=== PATIENT | male | born 1955 | race African-American/Black ===

== ENCOUNTER 2016-08-12 10:51 | Emergency (ER) | payer BC, OTHER, SELFPAY ==
[2016-08-12] MEDS ORDERED: Ibuprofen 800 MG TAB ONE (11:30)
== END 2016-08-12 11:42 | disposition home or self-care (01) ==
LOC: MADERS 10:51
DX: S39.012A Strain of muscle, fascia and tendon of lower back, initial encounter (principal); I10 Essential (primary) hypertension; F17.210 Nicotine dependence, cigarettes, uncomplicated; W00.0XXA Fall on same level due to ice and snow, initial encounter; Y92.511 Restaurant or cafe as the place of occurrence of the external cause
CPT/HCPCS: 99283

== ENCOUNTER 2018-11-22 14:36 | Emergency (ER) | payer MEDICARE ==
[2018-11-22] MEDS ORDERED: Sodium Chloride 0.9% 1,000 ML ONE ×3 (15:14→19:54)
[2018-11-22] MEDS ORDERED: Ondansetron PF 4 MG/2 ML Vial ONE (15:14)
[2018-11-22 16:07] LABS: Band 10 % (5-11); Hemoglobin 15.9 g/dL (14.0-18.0); Lymphocytes 32 % (21-51); MDiff Complete? YES; Mean Corpuscular HGB CONC 34.1 g/dL (32.0-36.0); Mean Corpuscular Hemoglobin 33.3 pg (27.0-31.0); Mean Corpuscular Volume 97.6 fL (78.0-98.0); Mean Platelet Volume 7.2 fL (7.4-10.4); Monocytes 8 % (0-10); Neutrophil 50 % (42-75); Platelet Count 311 thou/uL (130-400); Platelet Morphology Comment Appears Adequate; RBC Distribution Width 21.2 % (11.5-14.5); Red Blood Cell (RBC) Count 4.78 mill/uL (4.70-6.10); White Blood Cell (WBC) Count 4.7 thou/uL (4.8-10.8)
[2018-11-22 16:14] LABS: ALT (SGPT) 13 U/L (8-55); AST (SGOT) 28 U/L (5-34); Albumin 4.6 g/dL (3.4-4.8); Alkaline Phosphatase 110 U/L (40-110); Anion Gap 28 mmol/L (10-20); BUN (Urea Nitrogen) 75 mg/dL (8.4-25.7); Bilirubin, Total 0.8 mg/dL (0.2-1.2); Calc. Creatinine Clearance 0 mL/min (70-130); Carbon Dioxide 21 mmol/L (23-31); Chloride 92 mmol/L (98-107); Estimated GFR-MDRD 10; Globulin 4.6 g/dL (2.4-3.5); Glucose 112 mg/dL (80-115); Potassium 3.6 mmol/L (3.5-5.1); Protein, Total 9.2 g/dL (5.8-8.1); Sodium 137 mmol/L (136-145)
[2018-11-22 19:16] LABS: ALT (SGPT) 12 U/L (8-55); AST (SGOT) 23 U/L (5-34); Alkaline Phosphatase 95 U/L (40-110); Anion Gap 21 mmol/L (10-20); BUN (Urea Nitrogen) 74 mg/dL (8.4-25.7); Bilirubin, Total 0.6 mg/dL (0.2-1.2); Calc. Creatinine Clearance 0 mL/min (70-130); Calcium 8.7 mg/dL (7.8-10.44); Carbon Dioxide 20 mmol/L (23-31); Chloride 99 mmol/L (98-107); Estimated GFR-MDRD 12; Globulin 3.6 g/dL (2.4-3.5); Glucose 101 mg/dL (80-115); Potassium 3.4 mmol/L (3.5-5.1); Protein, Total 7.6 g/dL (5.8-8.1); Sodium 137 mmol/L (136-145)
[2018-11-22 20:37] LABS: Bilirubin Small (Negative); Blood, Urine Moderate (Negative); Clarity Clear (Clear); Glucose, Urine (Dipstick) Negative (Negative); Leukocyte Negative (Negative); Nitrite Negative (Negative); Protein, Urine (Dipstick) 100 mg/dL (Neg-Trace); Urobilinogen 0.2 mg/dL (Less than 2)
[2018-11-22 20:39] LABS: RBC/HPF 0-3 HPF (0-3); WBC/HPF 0-3 HPF (0-3)
[2018-11-22 20:40] LABS: Bacteria/HPF Rare-Few HPF (None Seen); Mucous/LPF Rare LPF (<2+)
== END 2018-11-22 20:14 | disposition short-term general hospital (02) ==
LOC: MADERS 14:36
DX: N17.9 Acute kidney failure, unspecified (principal); E86.0 Dehydration; E78.5 Hyperlipidemia, unspecified; E78.00 Pure hypercholesterolemia, unspecified; I10 Essential (primary) hypertension; F17.210 Nicotine dependence, cigarettes, uncomplicated; Z79.899 Other long term (current) drug therapy
CPT/HCPCS: 36415; 80053; 81003; 81015; 82550; 83880; 84443; 85025; 96361; 96374; J2405; J7050

== ENCOUNTER 2020-02-20 17:41 | Emergency (ER) | payer MEDICARE ==
[~2020-02-20 17:41] MED LIST: Iopamidol 370 76% 100 ML VIAL ONE; Sodium Chloride 0.9% 100 ML BAG ONE
[2020-02-20] MEDS ORDERED: Ondansetron ODT 4 MG TAB ONE (18:18)
[2020-02-20 18:36] LABS: Bilirubin Small (Negative); Blood, Urine Small (Negative); Clarity Hazy (Clear); Glucose, Urine (Dipstick) Negative (Negative); Ketone, Urine Trace mg/dL (Negative); Leukocyte Trace (Negative); Nitrite Negative (Negative); Protein, Urine (Dipstick) 100 mg/dL (Neg-Trace)
[2020-02-20 18:47] LABS: Bacteria/HPF 1+ HPF (None Seen); Mucous/LPF 2+ LPF (<2+); RBC/HPF 0-3 HPF (0-3); Squamous Epithelial 0-3 HPF (0-3)
[2020-02-20 19:10] LABS: ALT (SGPT) 42 U/L (8-55); AST (SGOT) 115 U/L (5-34); Albumin 4.6 g/dL (3.4-4.8); Alkaline Phosphatase 75 U/L (40-110); Anion Gap 20 mmol/L (10-20); BUN (Urea Nitrogen) 27 mg/dL (8.4-25.7); Bilirubin, Total 1.4 mg/dL (0.2-1.2); Calc. Creatinine Clearance 0 mL/min (70-130); Calcium 9.2 mg/dL (7.8-10.44); Carbon Dioxide 19 mmol/L (23-31); Chloride 108 mmol/L (98-107); Glucose 118 mg/dL (80-115); Lipase 28 U/L (8-78); Protein, Total 7.6 g/dL (5.8-8.1); Sodium 143 mmol/L (136-145)
[2020-02-20 19:17] LABS: #Eosinphils 0.1 thou/uL (0.0-0.7); #Lymphocytes 1.3 thou/uL (1.20-3.40); #Monocytes 0.2 thou/uL (0.11-0.59); #Neutrophils 2.3 thou/uL (1.40-6.50); %Basophils 0.8 % (0.0-1.0); %Eosinophils 1.7 % (0.0-10.0); %Lymphocytes 34.3 % (21.0-51.0); %Monocytes 3.9 % (0.0-10.0); %Neutrophils 59.3 % (42.0-75.0); Anisocytosis MODERATE=16-30 cells (100X) (0-5/hpf); Giant Platelets SLIGHT; Hypochromia MODERATE=16-30 cells (100X) (0-5/hpf); Large Platelets SLIGHT; MDiff Complete? YES; Macrocytosis MODERATE=16-30 cells (100X) (0-5/hpf); Mean Corpuscular HGB CONC 33.4 g/dL (32.0-36.0); Mean Corpuscular Hemoglobin 38.9 pg (27.0-31.0); Mean Corpuscular Volume 116.5 fL (78.0-98.0); Mean Platelet Volume 11.8 fL (7.4-10.4); Ovalocytes SLIGHT = 2-5 cells (100X) (0-1/hpf); Platelet Count 85 thou/uL (130-400); Platelet Morphology Comment Appears Decreased; Poikilocytosis MARKED = >30 cells (100X) (0-5/hpf); Polychromasia MODERATE = 3-4 cells (100X) (0-2/hpf); RBC Distribution Width 22.7 % (11.5-14.5); Red Blood Cell (RBC) Count 1.54 mill/uL (4.70-6.10); Reflex for Review?? YES; Tear Drops SLIGHT = 2-5 cells (100X) (0-1/hpf); White Blood Cell (WBC) Count 3.8 thou/uL (4.8-10.8)
--- NOTE | 2020-02-20 20:25 | CT ---
CT ABDOMEN AND PELVIS WITH IV CONTRAST 02/20/2020 CLINICAL INFORMATION: Nausea and vomiting. COMPARISON: None. Technique: Multiple contiguous axial CT images are obtained through the abdomen and pelvis with IV contrast. Cor onal reformatted images are provided. FINDINGS: Lower Chest: There is a rounded area of consolidation seen in the posteromedial right lower lobe worr isome for focal area of pneumonia. Minimal patchy density is also seen in the lingula also worrisome for infectious process. Vessels: Vascular calcifications are seen in the abdominal aorta and involving the iliac arteries. Abdomen: Portal vein:Patent Gallbladder: Within normal limits for CT imaging. Liver: within normal limits. Spleen: within normal limits. Pancreas: within normal limits. Adrenals: within normal limits. Kidneys: Subcentimeter too small to characterize hypodense lesion is present in the midportion right kidney. A nonobstructing calculus is seen in the inferior pole right kidney measuring approximately 4 mm. There is no hydronephrosis. Bowel: A few scattered colonic diverticuli are seen. There is suggested thickening in the region of t he ascending colon, but this is likely related to incomplete distention. Loops of small bowel are normal in caliber. Appendix: The appendix is visualized and normal in caliber. Peritoneum: No ascites or free air; no fluid collection. Mesentery and Retroperitoneum: No enlarged mesenteric or retroperitoneal lymph nodes. Abdominal Wall: Small fat-containing umbilical hernia is present. Pelvis: Reproductive Organs: No pelvic masses. Bladder: Decompressed and not well assessed. Bones: There is a sclerotic density in the left iliac bone which measures 1.4 cm. There is suggested interdigitated margins, and this likely represents a prominent bone island. IMPRESSION: 1. Focal right lower lobe pneumonia with probable focal area of pneumonitis in the lingula. Follow-up to resolution is recommended. 2. Nonobstructing right renal calculus.
[2020-02-20] MEDS ORDERED: cefTRIAXone\\ROCEPHIN 1 GM VIAL ONE (20:35)
--- NOTE | 2020-02-20 21:07 | RAD ---
EXAM: CHEST ONE VIEW HISTORY: Nausea and vomiting. COMPARISON: None FINDINGS: The cardiac silhouette and pulmonary vasculature are within normal limits. The lungs are clear. Degen erative changes are seen in the spine. Vascular calcific lesions are seen in the thoracic aorta. IMPRESSION: No acute cardiopulmonary process.
[2020-02-20] MEDS ORDERED: Azithromycin 500 MG VIAL ONE (21:10)
[2020-02-21 01:16] LABS: Mean Corpuscular Volume 112.8 fL (78.0-98.0)
[2020-02-21 01:17] LABS: %Basophils 0.6 % (0.0-1.0); %Eosinophils 1.5 % (0.0-10.0); %Monocytes 3.8 % (0.0-10.0); %Neutrophils 48.2 % (42.0-75.0); Hemoglobin 6.9 g/dL (14.0-18.0); Mean Corpuscular HGB CONC 32.8 g/dL (32.0-36.0); Mean Corpuscular Hemoglobin 36.5 pg (27.0-31.0); Mean Platelet Volume 9.9 fL (7.4-10.4); Platelet Count 76 thou/uL (130-400); RBC Distribution Width 24.3 % (11.5-14.5); Red Blood Cell (RBC) Count 1.91 mill/uL (4.70-6.10); White Blood Cell (WBC) Count 4.2 thou/uL (4.8-10.8)
== END 2020-02-21 01:32 | disposition home or self-care (01) ==
LOC: MADERS 17:41
DX: D61.818 Other pancytopenia (principal); R11.2 Nausea with vomiting, unspecified; R63.0 Anorexia; E78.5 Hyperlipidemia, unspecified; E78.00 Pure hypercholesterolemia, unspecified; I10 Essential (primary) hypertension; F17.210 Nicotine dependence, cigarettes, uncomplicated; Z79.82 Long term (current) use of aspirin; Z79.899 Other long term (current) drug therapy
CPT/HCPCS: 36430; 71045; 74177; 80053; 83605; 83690; 84484; 85025; 85379; 86850; 86900; 86901; 86920; 87086; 93005; P9016; 81003; 81015; 85060; 96365; 96366; 96367; J0456; J0696; J3490; J7050; Q0162; Q9967

== ENCOUNTER 2020-03-17 21:03 | Inpatient (IN) | payer MEDICARE ==
[2020-03-17] MEDS ORDERED: Acetaminophen 325 MG TAB PO PRN (22:48)
[2020-03-17] MEDS ORDERED: Ondansetron ODT 4 MG TAB PO PRN (22:48)
[2020-03-17] MEDS ORDERED: Cholecalciferol (Vitamin D3) 5,000 UNITS CAPSULE PO SCH (23:00)
[2020-03-18 02:31] LABS: Clarity Clear (Clear); Glucose, Urine (Dipstick) Negative (Negative); Leukocyte Negative (Negative); Nitrite Negative (Negative); Protein, Urine (Dipstick) 30 mg/dL (Neg-Trace); pH, Urine 8.5 (5.0-9.0)
[2020-03-18 02:32] LABS: Bilirubin Negative (Negative); Blood, Urine Trace (Negative); Ketone, Urine Trace mg/dL (Negative); Urobilinogen 0.2 mg/dL (Less than 2)
[2020-03-18 02:35] LABS: RBC/HPF 0-3 HPF (0-3); Squamous Epithelial 0-3 HPF (0-3); WBC/HPF 0-3 HPF (0-3)
[2020-03-18 02:36] LABS: Bacteria/HPF Rare-Few HPF (None Seen); Mucous/LPF 2+ LPF (<2+)
[2020-03-18] MEDS: Ascorbic Acid 500 mg Chewable Tablet PO SCH (08:55)
[2020-03-18] MEDS: Famotidine 20 MG TAB PO SCH ×2 (08:55→21:30)
[2020-03-18] MEDS: Zinc Sulfate 220 MG CAP PO SCH (08:55)
[2020-03-18] MEDS: Cholecalciferol (Vitamin D3) 5,000 UNITS CAPSULE PO SCH (08:55)
[2020-03-18] MEDS: Aspirin 81 mg Enteric Coated Tablet PO SCH (08:56)
[2020-03-18] MEDS: Dexamethasone 4 MG TAB PO SCH (08:56)
[2020-03-18] MEDS: Simvastatin 5 MG TAB PO SCH (17:00)
--- NOTE | 2020-03-19 | HP ---
PRIMARY CARE PHYSICIAN: Dr. Crystal Weeks. REASON FOR ADMISSION: For skilled rehabilitation at [facility] due to severe physical deconditioning status post COVID with-19 pneumonia leading to acute respiratory failure, septic shock, severe anemia, and [id number] myocardial infarction. BRIEF HISTORY AND PHYSICAL: The patient is a 64-year-old male who was admitted to the hospital on February 21, 2020, for altered mental status and pneumonia in the context of COVID-19 positive test. The patient was noted to be hypoxic prior to presentation and he was also hypotensive requiring pressors. He was started on vitamin C and steroids, but due to his poor renal function, he was unable to be started on remdesivir. The patient required endotracheal tube placement on mechanical ventilation. He was also noted to have elevated troponin and was seen by the Cardiology Service, who recommended conservative management. During hospitalization, the patient was noted to be severely anemic and received packed RBC for severe anemia. He was also found to have thrombocytopenia which was present due to sepsis and during hospitalization, he had acute kidney injury and this was monitored closely. During hospitalization, the thrombocytopenia eventually resolved. Doctors had multiple conversations with family members about patient's progress, recommended to continue to be a full code, on continued mechanical ventilation with endotracheal tube. On March 13, the patient was extubated and initial plan was to have a tracheostomy and PEG tube placement on the , but patient significantly improved following extubation and was able to be on room air and he was subsequently transferred to the regular floor. He was seen by speech therapist who recommended a pureed and nectar thick diet and the patient was started on a diet. The patient was able to improve and due to long-term stay in CCU, COVID-19 pneumonia, patient was severely physical deconditioned. He was subsequently transferred to [facility] to start skilled rehabilitation prior to discharge back to his home. The patient during hospitalization was also noted to have lymphocyte predominance on the CBC and will need to follow up with complaint analyst as outpatient. Upon evaluation of the patient today, he was very emotional, very tearful. He was happy to be in facility and he is glad to be a COVID-19 survivor. He denies any chest pain. Denies shortness of breath. Denies palpitation and denies any dizziness, though patient is noted to be severely deconditioned, especially to his lower extremities. He does have a Rincon catheter in place due to his weakness and stay in the ICU. PAST MEDICAL HISTORY: Hypertension. PAST SURGICAL HISTORY: None. FAMILY HISTORY: Both parents . Father and mother both had hypertension. SOCIAL HISTORY: The patient lives at home with his . He smokes every day. Occasional alcohol use. Denies any illicit drug use. CODE STATUS: Patient is a full code. ALLERGIES: NO KNOWN DRUG ALLERGIES. MEDICATIONS: 1. Tylenol 650 q.4 hours p.r.n. 2. Ascorbic acid 1000 mg daily. 3. Aspirin 81 mg daily. 4. Calciferol 5000 units q.7 days. 5. Vitamin B12 at 1000 mcg IM q.7 days. 6. Dexamethasone 4 mg daily x6 days. 7. Pepcid 20 mg b.i.d. 8. Metoprolol succinate 25 mg daily. 9. Simvastatin 5 mg daily. 10. Zinc sulfate 220 mg p.o. daily. REVIEW OF SYSTEMS: CONSTITUTIONAL: The patient complains of generalized weakness. HEENT: Head, atraumatic. Eyes, denies any eye pain or discharge. Ear, nose, and throat, denies any ear pain. Denies any nasal congestion. The patient does complain of secretions due to recent intubation. CARDIOVASCULAR: The patient denies any chest pain, palpitations. RESPIRATORY: The patient does have some cough. He denies any shortness of breath. GASTROINTESTINAL: The patient denies abdominal pain, nausea, or vomiting. GENITOURINARY: The patient denies any pain with urination. He does have a Rincon catheter in place. EXTREMITIES: The patient denies any clubbing. Trace swelling to lower legs. PSYCHIATRY: The patient is very depressed. Denies any hallucination. NEUROLOGIC: The patient complains of weakness to upper and lower extremities. PHYSICAL EXAMINATION: VITAL SIGNS: Temperature 98.7, pulse 100, respirations 20, blood pressure 147/71, O2 saturation 98% on room air. GENERAL: The patient is alert, awake, and oriented x3. Patient is very tearful. HEENT: Normocephalic, atraumatic. PERRL. Anicteric sclerae. Moist oral mucous membranes. Poor dentition with missing tooth. NECK: Supple. No JVD, symmetrical. Trachea midline. HEART: S1, S2. No murmurs or gallops or rubs. RESPIRATORY: Patient does have some upper airway breath sounds and scattered rhonchi in the upper lobes. Otherwise, patient is moving adequate air. GASTROINTESTINAL: Positive bowel sounds, nontender, nondistended. No guarding. No rebound. EXTREMITIES: Trace edema bilaterally. No cyanosis. No clubbing. NEUROLOGICAL: Cranial nerves 2 through 12 grossly intact. PSYCHIATRIC: The patient is very depressed, very tearful. ASSESSMENT: 1. Physical deconditioning. 2. COVID-19 pneumonia. 3. Acute respiratory failure, hypoxic, resolved. 4. Septic shock, resolved. 5. [id number] myocardial infarction. 6. Severe anemia. 7. Thrombocytopenia. 8. Lymphocytosis. 9. Vitamin B12 deficiency. 10. Dysphagia PLAN: Patient is a 64-year-old male who is admitted to [facility] due to severe deconditioning secondary to COVID-19 pneumonia and acute respiratory failure. We will resume medications sent over from [place]. We will continue patient on dexamethasone 4 mg x6 days. We will continue the patient on vitamin C, vitamin D, and zinc. We will consult with Physical Therapy and Occupational Therapy to help with his gait, stability, balance, and ambulation. We will consult with Occupational Therapy to help with activities of daily living. We will slowly start a voiding protocol on patient and hopefully discontinue his Rincon catheter. We will monitor the patient closely for any hemodynamic instability and adjust accordingly. We will consult speech therapy due to dysphagia. Estimated length of stay is 3 to 4 weeks. DVT prophylaxis with SCDs. GI prophylaxis, Pepcid b.i.d. Estimated length of time used to prepare the H and P and evaluate the patient is greater than 45 minutes. Job ID: [id number] [facility]
[2020-03-19] MEDS: Famotidine 20 MG TAB PO SCH ×2 (08:46→20:48)
[2020-03-19] MEDS: Zinc Sulfate 220 MG CAP PO SCH (08:46)
[2020-03-19] MEDS: Aspirin 81 mg Enteric Coated Tablet PO SCH (08:46)
[2020-03-19] MEDS: Ascorbic Acid 500 mg Chewable Tablet PO SCH (08:47)
[2020-03-19] MEDS: Dexamethasone 4 MG TAB PO SCH (08:47)
[2020-03-19] MEDS: Simvastatin 5 MG TAB PO SCH (16:56)
[2020-03-20] MEDS: Famotidine 20 MG TAB PO SCH ×2 (08:41→20:43)
[2020-03-20] MEDS: Dexamethasone 4 MG TAB PO SCH (08:41)
[2020-03-20] MEDS: Aspirin 81 mg Enteric Coated Tablet PO SCH (08:41)
[2020-03-20] MEDS: Zinc Sulfate 220 MG CAP PO SCH (08:41)
[2020-03-20] MEDS: Ascorbic Acid 500 mg Chewable Tablet PO SCH (08:41)
[2020-03-20] MEDS: Simvastatin 5 MG TAB PO SCH (17:35)
[2020-03-21] MEDS: Famotidine 20 MG TAB PO SCH ×2 (08:25→20:09)
[2020-03-21] MEDS: Aspirin 81 mg Enteric Coated Tablet PO SCH (08:25)
[2020-03-21] MEDS: Dexamethasone 4 MG TAB PO SCH (08:26)
[2020-03-21] MEDS: Ascorbic Acid 500 mg Chewable Tablet PO SCH (08:26)
[2020-03-21] MEDS: Zinc Sulfate 220 MG CAP PO SCH (08:26)
[2020-03-21] MEDS: Clotrimazole 1% Cream 15 GM TUBE TOP SCH ×2 (13:50→20:09)
[2020-03-21] MEDS: Simvastatin 5 MG TAB PO SCH (17:11)
[2020-03-22] MEDS: Zinc Sulfate 220 MG CAP PO SCH (08:11)
[2020-03-22] MEDS: Ascorbic Acid 500 mg Chewable Tablet PO SCH (08:11)
[2020-03-22] MEDS: Famotidine 20 MG TAB PO SCH ×2 (08:11→20:26)
[2020-03-22] MEDS: Aspirin 81 mg Enteric Coated Tablet PO SCH (08:11)
[2020-03-22] MEDS: Dexamethasone 4 MG TAB PO SCH (08:12)
[2020-03-22] MEDS: Clotrimazole 1% Cream 15 GM TUBE TOP SCH ×2 (08:18→20:27)
[2020-03-22] MEDS ORDERED: Triamcinolone 0.1% Cream 15 GM TUBE TOP PRN (16:53)
[2020-03-22] MEDS: Simvastatin 5 MG TAB PO SCH (17:06)
[2020-03-23] MEDS: Dexamethasone 4 MG TAB PO SCH (08:16)
[2020-03-23] MEDS: Aspirin 81 mg Enteric Coated Tablet PO SCH (08:16)
[2020-03-23] MEDS: Ascorbic Acid 500 mg Chewable Tablet PO SCH (08:16)
[2020-03-23] MEDS: Zinc Sulfate 220 MG CAP PO SCH (08:17)
[2020-03-23] MEDS: Clotrimazole 1% Cream 15 GM TUBE TOP SCH ×2 (08:17→20:41)
[2020-03-23] MEDS: Famotidine 20 MG TAB PO SCH ×2 (08:17→20:40)
[2020-03-23 15:22] VITALS: BMI 29.7
[2020-03-23] MEDS: Simvastatin 5 MG TAB PO SCH (17:00)
[2020-03-24] MEDS: Aspirin 81 mg Enteric Coated Tablet PO SCH (08:13)
[2020-03-24] MEDS: Famotidine 20 MG TAB PO SCH ×2 (08:13→21:21)
[2020-03-24] MEDS: Ascorbic Acid 500 mg Chewable Tablet PO SCH (08:13)
[2020-03-24] MEDS: Zinc Sulfate 220 MG CAP PO SCH (08:13)
[2020-03-24] MEDS: Dexamethasone 4 MG TAB PO SCH (08:14)
[2020-03-24] MEDS: Clotrimazole 1% Cream 15 GM TUBE TOP SCH ×2 (08:14→21:21)
[2020-03-24] MEDS: Cyanocobalamin 1000 MCG/ML VIAL IM SCH (08:15)
[2020-03-24] MEDS: Simvastatin 5 MG TAB PO SCH (16:52)
[2020-03-25] MEDS: Famotidine 20 MG TAB PO SCH ×2 (07:49→20:14)
[2020-03-25] MEDS: Ascorbic Acid 500 mg Chewable Tablet PO SCH (07:50)
[2020-03-25] MEDS: Zinc Sulfate 220 MG CAP PO SCH (07:50)
[2020-03-25] MEDS: Dexamethasone 4 MG TAB PO SCH (07:50)
[2020-03-25] MEDS: Aspirin 81 mg Enteric Coated Tablet PO SCH (07:50)
[2020-03-25] MEDS: Clotrimazole 1% Cream 15 GM TUBE TOP SCH ×2 (07:50→20:14)
[2020-03-25] MEDS: Cholecalciferol (Vitamin D3) 5,000 UNITS CAPSULE PO SCH (07:50)
[2020-03-25] MEDS: Simvastatin 5 MG TAB PO SCH (16:46)
[2020-03-26] MEDS: Famotidine 20 MG TAB PO SCH ×2 (08:16→20:05)
[2020-03-26] MEDS: Ascorbic Acid 500 mg Chewable Tablet PO SCH (08:16)
[2020-03-26] MEDS: Zinc Sulfate 220 MG CAP PO SCH (08:16)
[2020-03-26] MEDS: Aspirin 81 mg Enteric Coated Tablet PO SCH (08:16)
[2020-03-26] MEDS: Clotrimazole 1% Cream 15 GM TUBE TOP SCH ×2 (08:18→20:05)
[2020-03-26] MEDS: Simvastatin 5 MG TAB PO SCH (17:03)
[2020-03-27] MEDS: Aspirin 81 mg Enteric Coated Tablet PO SCH (08:19)
[2020-03-27] MEDS: Ascorbic Acid 500 mg Chewable Tablet PO SCH (08:19)
[2020-03-27] MEDS: Famotidine 20 MG TAB PO SCH ×2 (08:19→20:08)
[2020-03-27] MEDS: Zinc Sulfate 220 MG CAP PO SCH (08:19)
[2020-03-27] MEDS: Clotrimazole 1% Cream 15 GM TUBE TOP SCH ×2 (08:20→20:09)
[2020-03-27] MEDS: Simvastatin 5 MG TAB PO SCH (17:07)
[2020-03-28] MEDS: Famotidine 20 MG TAB PO SCH ×2 (08:08→20:45)
[2020-03-28] MEDS: Zinc Sulfate 220 MG CAP PO SCH (08:08)
[2020-03-28] MEDS: Aspirin 81 mg Enteric Coated Tablet PO SCH (08:08)
[2020-03-28] MEDS: Ascorbic Acid 500 mg Chewable Tablet PO SCH (08:08)
[2020-03-28] MEDS: Clotrimazole 1% Cream 15 GM TUBE TOP SCH ×2 (08:08→20:45)
[2020-03-28] MEDS: Simvastatin 5 MG TAB PO SCH (17:02)
[2020-03-29] MEDS: Aspirin 81 mg Enteric Coated Tablet PO SCH (08:30)
[2020-03-29] MEDS: Zinc Sulfate 220 MG CAP PO SCH (08:30)
[2020-03-29] MEDS: Famotidine 20 MG TAB PO SCH ×2 (08:30→20:58)
[2020-03-29] MEDS: Ascorbic Acid 500 mg Chewable Tablet PO SCH (08:30)
[2020-03-29] MEDS: Clotrimazole 1% Cream 15 GM TUBE TOP SCH ×2 (08:31→20:58)
[2020-03-29] MEDS: Simvastatin 5 MG TAB PO SCH (16:47)
[2020-03-30] MEDS: Famotidine 20 MG TAB PO SCH ×2 (08:34→20:14)
[2020-03-30] MEDS: Zinc Sulfate 220 MG CAP PO SCH (08:34)
[2020-03-30] MEDS: Ascorbic Acid 500 mg Chewable Tablet PO SCH (08:34)
[2020-03-30] MEDS: Aspirin 81 mg Enteric Coated Tablet PO SCH (08:34)
[2020-03-30] MEDS: Clotrimazole 1% Cream 15 GM TUBE TOP SCH ×2 (08:36→20:14)
[2020-03-30] MEDS: Simvastatin 5 MG TAB PO SCH (17:11)
[2020-03-31] MEDS: Aspirin 81 mg Enteric Coated Tablet PO SCH (08:29)
[2020-03-31] MEDS: Famotidine 20 MG TAB PO SCH ×2 (08:29→20:06)
[2020-03-31] MEDS: Ascorbic Acid 500 mg Chewable Tablet PO SCH (08:29)
[2020-03-31] MEDS: Zinc Sulfate 220 MG CAP PO SCH (08:29)
[2020-03-31] MEDS: Cyanocobalamin 1000 MCG/ML VIAL IM SCH (08:34)
[2020-03-31] MEDS: Clotrimazole 1% Cream 15 GM TUBE TOP SCH ×2 (08:35→20:06)
[2020-03-31] MEDS: Simvastatin 5 MG TAB PO SCH (17:06)
[2020-04-01] MEDS: Cholecalciferol (Vitamin D3) 5,000 UNITS CAPSULE PO SCH (08:29)
[2020-04-01] MEDS: Ascorbic Acid 500 mg Chewable Tablet PO SCH (08:29)
[2020-04-01] MEDS: Clotrimazole 1% Cream 15 GM TUBE TOP SCH (08:29)
[2020-04-01] MEDS: Zinc Sulfate 220 MG CAP PO SCH (08:29)
[2020-04-01] MEDS: Famotidine 20 MG TAB PO SCH (08:29)
[2020-04-01] MEDS: Aspirin 81 mg Enteric Coated Tablet PO SCH (08:29)
[2020-04-01 12:18] VITALS: BP 115/71; TEMP 98.5
--- NOTE | 2020-04-03 18:02 | DIS ---
DATE OF ADMISSION: 03/21/2020 DATE OF DISCHARGE: 04/01/2020 ADMITTING PHYSICIAN: Micky Rojas MD DISCHARGING PHYSICIAN: Micky Rojas MD. PRIMARY CARE PHYSICIAN: Micky Rojas MD. DISCHARGE DIAGNOSES: 1. Physical deconditioning. 2. COVID-19 pneumonia. 3. Acute respiratory failure, resolved. 4. Septic shock, resolved. 5. Severe anemia, resolved. 6. Thrombocytopenia. 7. Dysphagia. 8. Vitamin B12 deficiency. 9. Lymphocytosis. 10. Hypertension. 11. Gait instability. DISCHARGE MEDICATIONS: 1. Metoprolol 25 daily. 2. Zinc sulfate 220 daily. 3. Simvastatin 5 mg daily. 4. Vitamin B12 1000 mcg IM q.7 days. 5. Calciferol 5000 units daily. 6. Aspirin 81 mg daily. 7. Ascorbic acid 1000 mg daily. 8. Tylenol 650 q.4 p.r.n. DISPOSITION: Back to his home with family members. CONDITION ON DISCHARGE: Good and stable. DISCHARGE ACTIVITY: Home Health with [facility], to resume physical therapy, occupational therapy and nursing care. The patient instructed to ambulate with cane as needed. The patient advised to follow up with PCP within 2 weeks. HISTORY OF PRESENT ILLNESS AND HOSPITAL COURSE: Jhon Chanel is a very pleasant 64-year-old male who was admitted to [facility] on the February for altered mental status and pneumonia due to COVID-19. The patient was hypoxic and hypotensive requiring pressors. He was noted to be septic. He had poor renal function and was unable to get remdesivir. The patient required endotracheal tube placement and mechanical ventilation. He was noted to have elevated troponins, was seen by Cardiology service. He was noted to have severe anemia and received packed red blood cells, which improved. This patient's condition progressed very slowly in the PCU and after multiple conversations with family and the decision was made to extubate the patient and place him on PEG tube placement and have a tracheostomy. The patient after extubation subsequently improved significantly and was able to be on room air. The patient was monitored and due to his long-term stay in the CCU, his COVID-19 pneumonia, he was noted to be severely deconditioned and was transferred here to [facility] bed on the 17 March 2020. The patient during hospitalization here was initially very emotional, very tearful, had a lot of oral secretions, but after 3 days of getting physical therapy, he improved, he was very pleasant. He was very jovial. He started ambulating with a rolling walker and his mental status improved significantly. The patient did not need any oxygen throughout hospitalization. Unfortunately, during hospitalization, the patient was noted to have paraphimosis. He had long-term Rincon catheter during his PCU stay and decision was made to remove the Rincon due to the paraphimosis and penile swelling. Rincon was removed. The patient was started on treatment on March 22, 2020, and this slowly improved, and by the 28 of March, the paraphimosis was totally resolved, penal pain was resolved, and swelling was resolved. The patient was able to transition from a rolling walker to a cane and progressively continued to improve. By day of discharge on April 01, 2020, patient was able to ambulate about 600 feet without his cane or without a walker. He showed improvement in strength, balance and endurance, and the decision was made to discharge patient home with family members to continue therapy with [facility]. DISCHARGE PHYSICAL EXAMINATION: VITAL SIGNS: Temperature 98.5, respirations 18, pulse 81, O2 saturation 97 on room air, blood pressure 115/71. GENERAL: The patient was alert, awake, and oriented x3. CARDIOVASCULAR: S1 and S2. No murmurs. LUNGS: Respiration clear to auscultation bilaterally. ABDOMEN: Positive bowel sounds. Soft, nontender, nondistended. EXTREMITIES: No edema. No swelling. No cyanosis. PSYCHIATRY: Patient was denied any depression or anxiety. NEUROLOGIC: Cranial nerves 2 through 12 grossly intact. Gait, the patient was able to ambulate without a cane or rolling walker. SKIN: No rashes or lesions. Estimated length of time used to prepare for this discharge, evaluate the patient, call family and home health was greater than 45 minutes. Job ID: [id number]
== END 2020-04-01 13:50 | disposition home or self-care (01) | DRG 177 ==
LOC: UNDOADMIN 21:03 → MADMS 21:03
PROVIDERS: ADMIT Family Medicine; ATTEND Family Medicine
DX: U07.1 COVID-19 (principal); J12.82 Pneumonia due to coronavirus disease 2019; I21.4 Non-ST elevation (NSTEMI) myocardial infarction; D64.9 Anemia, unspecified; D72.820 Lymphocytosis (symptomatic); E53.8 Deficiency of other specified B group vitamins; R13.10 Dysphagia, unspecified; D69.6 Thrombocytopenia, unspecified; I10 Essential (primary) hypertension; Z79.82 Long term (current) use of aspirin
CPT/HCPCS: 81003; 81015; J3420; J8540

== ENCOUNTER 2021-08-27 11:13 | Emergency (ER) | payer MEDICARE ==
[~2021-08-27 11:13] MED LIST changes: -Sodium Chloride 0.9% 100 ML BAG ONE
[2021-08-27] MEDS ORDERED: Ondansetron PF 4 MG/2 ML Vial ONE (11:45)
[2021-08-27] MEDS ORDERED: Morphine 4 MG/ML VIAL ONE ×2 (11:45→12:12)
[2021-08-27] MEDS ORDERED: Sodium Chloride 0.9% 1,000 ML ONE (11:45)
[2021-08-27 11:52] LABS: #Basophils 0.1 thou/uL (0.0-0.2); #Eosinphils 0.1 thou/uL (0.0-0.7); #Lymphocytes 1.9 thou/uL (1.20-3.40); #Monocytes 0.7 thou/uL (0.11-0.59); #Neutrophils 6.3 thou/uL (1.40-6.50); %Basophils 1.1 % (0.0-1.0); %Eosinophils 0.8 % (0.0-10.0); %Lymphocytes 20.9 % (21.0-51.0); %Monocytes 7.4 % (0.0-10.0); %Neutrophils 69.8 % (42.0-75.0); Hemoglobin 12.8 g/dL (14.0-18.0); Mean Corpuscular HGB CONC 31.9 g/dL (32.0-36.0); Mean Corpuscular Hemoglobin 27.9 pg (27.0-31.0); Mean Corpuscular Volume 87.4 fL (78.0-98.0); Mean Platelet Volume 8.6 fL (7.4-10.4); Platelet Count 446 thou/uL (130-400); RBC Distribution Width 13.1 % (11.5-14.5); Red Blood Cell (RBC) Count 4.59 mill/uL (4.70-6.10)
[2021-08-27 12:11] LABS: ALT (SGPT) 40 U/L (8-55); AST (SGOT) 59 U/L (5-34); Albumin 4.1 g/dL (3.4-4.8); Alkaline Phosphatase 497 U/L (40-110); Anion Gap 19 mmol/L (10-20); BUN (Urea Nitrogen) 22 mg/dL (8.4-25.7); Bilirubin, Total 1.5 mg/dL (0.2-1.2); Calc. Creatinine Clearance 0 mL/min (70-130); Calcium 10.3 mg/dL (7.8-10.44); Carbon Dioxide 23 mmol/L (23-31); Chloride 101 mmol/L (98-107); Estimated GFR 91; Globulin 4.1 g/dL (2.4-3.5); Glucose 111 mg/dL (80-115); Lipase 98 U/L (8-78); Potassium 4.2 mmol/L (3.5-5.1); Protein, Total 8.2 g/dL (5.8-8.1); Sodium 139 mmol/L (136-145)
[2021-08-27 16:30] LABS: Bilirubin Moderate (Negative); Blood, Urine Negative (Negative); Glucose, Urine (Dipstick) Negative (Negative); Ketone, Urine 15 mg/dL (Negative); Leukocyte Negative (Negative); Nitrite Negative (Negative); Protein, Urine (Dipstick) 30 mg/dL (Neg-Trace); Specific Gravity, Urine 1.015 (1.005-1.030); pH, Urine 5.5 (5.0-9.0)
[2021-08-27 16:31] LABS: Clarity Hazy (Clear)
[2021-08-27 16:32] LABS: Bacteria/HPF Rare-Few HPF (None Seen); RBC/HPF 0-3 HPF (0-3); Squamous Epithelial 0-3 HPF (0-3); WBC/HPF 0-3 HPF (0-3)
[2021-08-27] MEDS ORDERED: Morphine 4 MG/ML VIAL SLOW IVP PRN (18:25)
[2021-08-27] MEDS ORDERED: Ondansetron PF 4 MG/2 ML Vial IVP PRN (18:30)
[2021-08-27] MEDS ORDERED: Sodium Chloride 0.9% 1,000 ML IV SCH (18:30)
[2021-08-27] MEDS ORDERED: Ondansetron ODT 4 MG TAB SL PRN (18:30)
== END 2021-08-27 16:47 | disposition short-term general hospital (02) ==
LOC: MADERS 11:13
DX: K56.699 Other intestinal obstruction unspecified as to partial versus complete obstruction (principal); C18.3 Malignant neoplasm of hepatic flexure; I10 Essential (primary) hypertension; E78.5 Hyperlipidemia, unspecified; E78.00 Pure hypercholesterolemia, unspecified; Z87.891 Personal history of nicotine dependence; Z79.82 Long term (current) use of aspirin; Z79.899 Other long term (current) drug therapy
CPT/HCPCS: 74177; 80053; 81003; 81015; 83605; 83690; 85025; 96361; 96374; 96375; J2270; J2405; J7050; Q9967

== ENCOUNTER 2021-09-07 20:55 | Emergency (ER) | payer MEDICARE ==
[2021-09-07] MEDS ORDERED: Silver Nitrate Application 1 EACH ONE (21:18)
== END 2021-09-07 21:50 | disposition home or self-care (01) ==
LOC: MADERS 20:55
DX: R04.0 Epistaxis (principal); I10 Essential (primary) hypertension; E78.5 Hyperlipidemia, unspecified; E78.00 Pure hypercholesterolemia, unspecified; Z87.891 Personal history of nicotine dependence; Z85.038 Personal history of other malignant neoplasm of large intestine; Z85.05 Personal history of malignant neoplasm of liver; Z79.82 Long term (current) use of aspirin; Z79.899 Other long term (current) drug therapy
CPT/HCPCS: 30901